=== PATIENT | female | born 1930 | race American Indian/Alaskan Native ===

== ENCOUNTER 2019-12-31 13:12 | Emergency (ER) | payer MEDICARE ==
[2019-12-31] MEDS ORDERED: HYDROcodone/ACETAMINOPHEN 5-325 MG TAB PO ONE (14:15)
--- NOTE | 2019-12-31 14:18 | Emergency Department Report ---
HPI - General Chief Complaint: Back Pain/Injury Time Seen by Provider: 12/31/19 13:54 - HPI HPI: Room 24 The patient is an 89-year-old female present with a chief complaint of hematuria. The patient states for the past 2 days she has noticed blood in her urine. The patient states for the past 2 days she is also had urinary frequency and intermittent pain in the left flank. Patient denies nausea/vomiting or fever. Patient currently gives her pain a score of 7/10 ED Past Medical Hx - Past Medical History Previous Medical History?: Yes Hx Hypertension: Yes Hx CVA: Yes Hx Psychiatric Treatment: Yes (Dementia) - Surgical History Additional Surgical History: , tonsillectomy - Family History Family history: no significant - Social History Smoking Status: Former Smoker Substance Use Type: None - Medications Home Medications: Home Medications Medication Instructions Recorded Confirmed Last Taken Type Ibuprofen [Motrin 800 MG tab] 800 mg PO Q8HR PRN #20 tablet 12/31/19 Unknown Rx levoFLOXacin [Levaquin TAB] 500 mg PO QDAY #10 tablet 12/31/19 Unknown Rx traMADoL [Ultram] 50 mg PO Q6HR PRN #10 tablet 12/31/19 Unknown Rx ED Review of Systems ROS: Stated complaint: BACK PAIN Other details as noted in HPI Constitutional: denies: fever Eyes: denies: eye pain ENT: denies: throat pain Respiratory: no symptoms reported Cardiovascular: denies: chest pain Endocrine: no symptoms reported Gastrointestinal: denies: abdominal pain, nausea, vomiting Genitourinary: frequency, hematuria. denies: dysuria Musculoskeletal: back pain Neurological: denies: headache Physical Exam - Physical Exam Physical Exam: GENERAL: The patient is well-developed well-nourished female lying on stretcher not appearing to be in acute distress. [] HEENT: Normocephalic. Atraumatic. Extraocular motions are intact. Patient has moist mucous membranes. NECK: Supple. Trachea midline CHEST/LUNGS: Clear to auscultation. There is no respiratory distress noted. HEART/CARDIOVASCULAR: Regular. There is no tachycardia. There is no gallop rub or murmur. ABDOMEN: Abdomen is soft, nontender. Patient has normal bowel sounds. There is no abdominal distention. SKIN: There is no rash. There is no edema. There is no diaphoresis. NEURO: The patient is awake, alert, and oriented. The patient is cooperative. The patient has normal speech MUSCULOSKELETAL: There is no CVA tenderness but patient complains of pain in the left flank. There is no evidence of acute injury. ED Medical Decision Making - Lab Data Result diagrams: 12/31/19 14:12 12/31/19 14:12 Laboratory Tests 12/31/19 12/31/19 12/31/19 14:12 14:12 18:00 WBC 5.1 RBC 4.61 Hgb 11.1 Hct 34.6 MCV 75 L MCH 24 L MCHC 32 RDW 14.6 Plt Count 210 Lymph % (Auto) 25.3 [place] % (Auto) 14.9 H Eos % (Auto) 0.5 Baso % (Auto) 0.8 Lymph # (Auto) 1.3 [place] # (Auto) 0.8 Eos # (Auto) 0.0 Baso # (Auto) 0.0 Seg Neutrophils % 58.5 Seg Neutrophils # 3.0 Sodium 142 Potassium 4.7 Chloride 109.8 H Carbon Dioxide 22 Anion Gap 15 BUN 21 H Creatinine 1.1 Estimated GFR 47 BUN/Creatinine Ratio 19 Glucose 74 Calcium 9.7 Urine Color Red Urine Turbidity Cloudy Urine pH 6.0 Ur Specific [place] 1.017 Urine Protein 100 mg/dl Urine Glucose (UA) Neg Urine Ketones Tr Urine Blood Lg Urine Nitrite Neg Urine Bilirubin Neg Urine Urobilinogen < 2.0 Ur Leukocyte Esterase Neg Urine WBC (Auto) > 182.0 H Urine RBC (Auto) > 182.0 Urine WBC Clumps 3+ Urine Yeast (Budding) 3+ - Radiology Data Radiology results: report reviewed (CT abdomen pelvis), image reviewed (CT abdomen pelvis) [address] [address] Cat Scan Report Signed Patient: VLADIMIR YEH MR#: [id number] : 1930 Acct:[id number] Age/Sex: 89 / F ADM Date: 12/31/19 Loc: ED Attending Dr: Ordering Physician: ANTIONETTE TATE MD Date of Service: 12/31/19 Procedure(s): CT abdomen pelvis wo con Accession Number(s): [id number] cc: ANTIONETTE TATE MD CT ABDOMEN AND PELVIS WITHOUT CONTRAST INDICATION: Left flank pain, hematuria CONTRAST: Without IV COMPARISON: None available. All CT scans at this location are performed using CT dose reduction for ALARA by means of automated exposure control. 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 Cardiomegaly is seen. Lung bases show mild chronic changes but no obvious acute infiltrates. No pneumoperitoneum is seen. Only minimal free fluid is seen in the pelvis is nonspecific. No lymphadenopathy is seen. I see no abnormalities of the liver, spleen, adrenals, pancreas, gallbladder, or bile ducts. No evidence of bowel obstruction is seen. Surgical changes are noted in the colon with appears to be right hemicolectomy changes and a persistently dilated portion of the transverse colon at the anastomotic site which probably is a chronic dilatation. No inflammatory changes are seen. No renal lesions are obvious. No urinary tract calculi or evidence of obstruction are seen. Urinary bladder shows no obvious abnormalities. Uterus shows a minimal calcified granuloma. No adnexal masses are seen. IMPRESSION: No acute abnormalities are seen. No obvious source of hematuria is identified. Signer Name: Don Callaway MD Signed: 12/31/2019 2:54 PM Workstation Name: [id number] Transcribed By: GJ Dictated By: Don Callaway MD Electronically Authenticated By: Don Callaway MD Signed Date/Time: 12/31/191453 DD/ TD/TT: - Differential Diagnosis Pyelonephritis, renal colic, UTI, bladder mass, renal mass Critical care attestation.: If time is entered above; I have spent that time in minutes in the direct care of this critically ill patient, excluding procedure time. ED Disposition Clinical Impression: Pyelonephritis, Acute left flank pain Disposition: DC-01 TO HOME OR SELFCARE Is pt being admited?: No Does the pt Need Aspirin: No Condition: Stable Instructions: Pyelonephritis, Adult, [place]ow-Joey Additional Instructions: Return to the emergency department should you develop worsening symptoms, inability to tolerate food or liquids, high fever or any other concerns Prescriptions: levoFLOXacin [Levaquin TAB] 500 mg PO QDAY #10 tablet Ibuprofen [Motrin 800 MG tab] 800 mg PO Q8HR PRN #20 tablet PRN Reason: Pain, Moderate (4-6) traMADoL [Ultram] 50 mg PO Q6HR PRN #10 tablet PRN Reason: Pain Referrals: PRIMARY CARE, [Primary Care Provider] - 3-5 Days Time of Disposition: 19:17
[2019-12-31 14:50] LABS: Basophils % (Auto) 0.8 % (0.0-1.8); Eosinophils % (Auto) 0.5 % (0.0-4.3); Hematocrit 34.6 % (30.3-42.9); Hemoglobin 11.1 gm/dl (10.1-14.3); Lymphocytes # (Auto) 1.3 K/mm3 (1.2-5.4); Lymphocytes % (Auto) 25.3 % (13.4-35.0); Mean Corpuscular HGB Conc 32 % (30-34); Mean Corpuscular Volume 75 fl (79-97); Monocytes # (Auto) 0.8 K/mm3 (0.0-0.8); Monocytes % (Auto) 14.9 % (0.0-7.3); Platelet Count 210 K/mm3 (140-440); Red Blood Count 4.61 M/mm3 (3.65-5.03); Red Cell Distribution Width 14.6 % (13.2-15.2)
--- NOTE | 2019-12-31 14:58 | Cat Scan Report ---
CT ABDOMEN AND PELVIS WITHOUT CONTRAST INDICATION: Left flank pain, hematuria CONTRAST: Without IV COMPARISON: None available. All CT scans at this location are performed using CT dose reduction for ALARA by means of automated e xposure control. 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 Cardiomegaly is seen. Lung bases show mild chronic changes but no obvious acute infiltrates. No pneumoperitoneum is seen. Only minimal terrie e fluid is seen in the pelvis is nonspecific. No lymphadenopathy is seen. I see no abnormalities of t he liver, spleen, adrenals, pancreas, gallbladder, or bile ducts. No evidence of bowel obstruction is seen. Surgical changes are noted in the colon with appears to be right hemicolectomy changes and a p ersistently dilated portion of the transverse colon at the anastomotic site which probably is a chron ic dilatation. No inflammatory changes are seen. No renal lesions are obvious. No urinary tract calculi or evidence of obstruction are seen. Urinary b ladder shows no obvious abnormalities. Uterus shows a minimal calcified granuloma. No adnexal masses are seen. IMPRESSION: No acute abnormalities are seen. No obvious source of hematuria is identified. Signer Name: Don Callaway MD Signed: 12/31/2019 2:54 PM Workstation Name: [id number]
[2019-12-31 15:07] LABS: Calcium 9.7 mg/dL (8.4-10.2)
[2019-12-31] MEDS ORDERED: cloNIDine 0.1 MG TAB PO ONE (16:15)
[2019-12-31 19:05] LABS: Bilirubin,Urine NEG (Negative); Blood,Urine LG (Negative); Color,Urine Red (Yellow); Urobilinogen,Urine < 2.0 mg/dL (<2.0)
[2019-12-31 19:06] LABS: RBC,Urine > 182.0 /HPF (0.0-6.0); WBC,Urine > 182.0 /HPF (0.0-6.0)
[2019-12-31] MEDS ORDERED: levoFLOXacin 500 MG TAB PO ONE (19:13)
[2019-12-31 19:49] VITALS: BP 135/58
== END 2020-01-01 01:47 | disposition home or self-care (01) ==
LOC: ED 13:12
DX: N12 Tubulo-interstitial nephritis, not specified as acute or chronic (principal); R10.9 Unspecified abdominal pain; I10 Essential (primary) hypertension; F03.90 Unspecified dementia, unspecified severity, without behavioral disturbance, psychotic disturbance, mood disturbance, and anxiety; Z86.73 Personal history of transient ischemic attack (TIA), and cerebral infarction without residual deficits; Z90.89 Acquired absence of other organs; Z87.891 Personal history of nicotine dependence; Z79.1 Long term (current) use of non-steroidal anti-inflammatories (NSAID); Z79.899 Other long term (current) drug therapy
CPT/HCPCS: 36415; 74176; 80048; 81001; 85025; 87086